=== PATIENT | female | born 1955 | race African-American/Black ===

== ENCOUNTER 2024-06-18 13:26 | Inpatient (IN) | payer MEDICARE ==
[2024-06-18] MEDS ORDERED: Ondansetron PF 4 MG/2 ML Vial ONE (14:35)
[2024-06-18 15:18] LABS: Bilirubin Negative (Negative); Blood, Urine Trace (Negative); CAUTI Indications for Culture Dysuria,urgency,freq; Clarity Clear (Clear); Glucose, Urine (Dipstick) Greater than 1000 mg/dL (Negative); Ketone, Urine 80 mg/dL (Negative); Leukocyte 250 Leu/uL (Negative); Nitrite Negative (Negative); Protein, Urine (Dipstick) 30 mg/dL (Neg-Trace); RBC/HPF 0-3 HPF (0-3); Specific Gravity, Urine 1.014 (1.002-1.036); Squamous Epithelial 0-3 HPF (0-3); Urobilinogen Normal mg/dL (Less than 2); WBC/HPF Greater than 50 HPF (0-3); pH, Urine 5.5 (5.0-9.0)
[2024-06-18 15:19] LABS: Influenza A by NAA Not Detected (NotDetected); Influenza B by NAA Not Detected (NotDetected); SARS-CoV-2 NAA Rapid Test Not Detected (NotDetected)
[2024-06-18 15:20] LABS: Bacteria/HPF 1+ HPF (None Seen)
[2024-06-18 15:21] LABS: Urine Culture Reflex Yes Yes
[2024-06-18 16:18] LABS: Analyzer IN Cardio ER; Base Excess -19.4 mEq/L (-2.0 to +3.0); Chloride (VBG) 101 mmol/L (98-106); Hematocrit-VBG 37 % (36.0-47.0); Hemoglobin (Hb) 12.6 g/dL (11.7-16.1); Potassium (VBG) 4.92 mmol/L (3.70-5.30); Sodium 136 mmol/L (133-146)
[2024-06-18 16:18] LABS: #Basophils Less than 0.03 10x3/uL (0.0-0.2); #Eosinphils Less than 0.03 10x3/uL (0.0-0.7); %Basophils 0.3 % (0.0-1.0); %Eosinophils 0.1 % (0.0-10.0); %Lymphocytes 9.9 % (21.0-51.0); %Monocytes 2.3 % (0.0-10.0); %Neutrophils 86.5 % (42.0-75.0); Hematocrit 35.4 % (36.0-47.0); Hemoglobin 10.8 g/dL (12.0-16.0); Mean Corpuscular HGB CONC 30.5 g/dL (32.0-36.0); Mean Corpuscular Hemoglobin 27.7 pg (27.0-31.0); Mean Corpuscular Volume 90.8 fL (78.0-98.0); Mean Platelet Volume 11.9 fL (7.4-10.4); Platelet Count 215 10x3/uL (130-400); RBC Distribution Width 14.4 % (11.5-14.5)
[2024-06-18 16:22] LABS: Actual Bicarbonate (HCO3v) 8.7 mEq/L (22-28)
[2024-06-18 16:32] LABS: ALT (SGPT) 17 U/L (8-55); AST (SGOT) 14 U/L (5-34); Albumin 3.6 g/dL (3.4-4.8); Alkaline Phosphatase 76 U/L (40-110); Anion Gap 28 mmol/L (10-20); BUN (Urea Nitrogen) 50 mg/dL (9.8-20.1); Bilirubin, Total 0.4 mg/dL (0.2-1.2); Calc. Creatinine Clearance 0 mL/min (70-130); Carbon Dioxide Less than 8 mmol/L (23-31); Chloride 103 mmol/L (98-107); Estimated GFR 11; Globulin 3.6 g/dL (2.4-3.5); Glucose 569 mg/dL (80-115); Potassium 5.1 mmol/L (3.5-5.1); Protein, Total 7.2 g/dL (5.8-8.1); Sodium 133 mmol/L (136-145)
[2024-06-18] MEDS ORDERED: Dextrose 5 %-0.45 % NaCl 1,000 ML IV PRN (16:47)
[2024-06-18] MEDS ORDERED: Acetaminophen 325 MG TAB PO PRN (16:47)
[2024-06-18] MEDS ORDERED: Acetaminophen 650 MG Suppository PR PRN (16:47)
[2024-06-18] MEDS ORDERED: Electrolyte Replacement Protocol 1 EACH IVPB ONE (16:47)
[2024-06-18] MEDS ORDERED: NS 0.9% w/ 20 MEQ KCL 1,000 ML IV PRN ×2 (16:47)
[2024-06-18] MEDS ORDERED: Acetaminophen/Codeine 30-300mg Tablet PO PRN (16:47)
[2024-06-18] MEDS ORDERED: Ondansetron ODT 4 MG TAB PO PRN (16:47)
[2024-06-18] MEDS ORDERED: Sodium Chloride 0.9% 1,000 ML IV PRN ×4 (16:47)
[2024-06-18] MEDS ORDERED: cefTRIAXone (ROCEPHIN) 2 GM VIAL ONE (16:57)
[2024-06-18] MEDS ORDERED: Sodium Chloride 0.9% 100 ML ONE (16:58)
[2024-06-18] MEDS ORDERED: INSULIN REGULAR IN 0.9 % NACL 100 ML ONE (17:15)
[2024-06-18] MEDS ORDERED: Insulin Regular, Human 100 UNIT/ML 10 ML VIAL ONE (17:15)
[2024-06-18] MEDS ORDERED: hydrALAZINE 20 MG/ML VIAL ONE (18:11)
[2024-06-18 19:10] LABS: Anion Gap 29 mmol/L (10-20); BUN (Urea Nitrogen) 50 mg/dL (9.8-20.1); Calc. Creatinine Clearance 0 mL/min (70-130); Calcium 8.9 mg/dL (7.8-10.44); Carbon Dioxide Less than 8 mmol/L (23-31); Chloride 105 mmol/L (98-107); Estimated GFR 11; Glucose 506 mg/dL (80-115); Magnesium 2.1 mg/dL (1.6-2.6); Phosphorus 5.1 mg/dL (2.3-4.7); Potassium 5.8 mmol/L (3.5-5.1); Sodium 135 mmol/L (136-145)
[2024-06-18] MEDS ORDERED: Famotidine/PF 20 mg/2ml Vial ONE (21:49)
[2024-06-18] MEDS: Famotidine/PF 20 mg/2ml Vial SLOW IVP SCH (21:51)
[2024-06-18 23:07] LABS: Anion Gap 25 mmol/L (10-20); BUN (Urea Nitrogen) 49 mg/dL (9.8-20.1); Calc. Creatinine Clearance 11 mL/min (70-130); Carbon Dioxide 8 mmol/L (23-31); Chloride 111 mmol/L (98-107); Estimated GFR 12; Glucose 303 mg/dL (80-115); Sodium 140 mmol/L (136-145)
[2024-06-18] MEDS: D5 1/2 NS w/20 mEq KCL 1,000 ML IV PRN (23:53)
[2024-06-19 00:02] VITALS: BMI 19.9
[2024-06-19] MEDS: hydrALAZINE 20 MG/ML VIAL SLOW IVP PRN (00:17)
[2024-06-19] MEDS: Labetalol HCl 100 MG/20 ML VIAL SLOW IVP SCH (00:21)
[2024-06-19 01:42] LABS: Anion Gap 20 mmol/L (10-20); BUN (Urea Nitrogen) 45 mg/dL (9.8-20.1); Calc. Creatinine Clearance 14 mL/min (70-130); Calcium 8.6 mg/dL (7.8-10.44); Carbon Dioxide 10 mmol/L (23-31); Chloride 113 mmol/L (98-107); Estimated GFR 14; Glucose 263 mg/dL (80-115); Potassium 4.2 mmol/L (3.5-5.1); Sodium 139 mmol/L (136-145)
[2024-06-19 04:14] LABS: ALT (SGPT) 14 U/L (8-55); AST (SGOT) 18 U/L (5-34); Albumin 3.5 g/dL (3.4-4.8); Alkaline Phosphatase 71 U/L (40-110); Anion Gap 19 mmol/L (10-20); BUN (Urea Nitrogen) 43 mg/dL (9.8-20.1); Bilirubin, Total 0.2 mg/dL (0.2-1.2); Calc. Creatinine Clearance 14 mL/min (70-130); Calcium 8.9 mg/dL (7.8-10.44); Carbon Dioxide 10 mmol/L (23-31); Chloride 113 mmol/L (98-107); Estimated GFR 14; Globulin 3.8 g/dL (2.4-3.5); Glucose 281 mg/dL (80-115); Potassium 4.4 mmol/L (3.5-5.1); Protein, Total 7.3 g/dL (5.8-8.1); Sodium 138 mmol/L (136-145)
[2024-06-19 06:00] LABS: #Basophils Less than 0.03 10x3/uL (0.0-0.2); #Eosinphils Less than 0.03 10x3/uL (0.0-0.7); %Basophils 0.2 % (0.0-1.0); %Eosinophils 0.1 % (0.0-10.0); %Lymphocytes 12.6 % (21.0-51.0); %Monocytes 6.1 % (0.0-10.0); %Neutrophils 80.6 % (42.0-75.0); Hematocrit 33.4 % (36.0-47.0); Hemoglobin 10.7 g/dL (12.0-16.0); Mean Corpuscular Hemoglobin 27.5 pg (27.0-31.0); Mean Corpuscular Volume 85.9 fL (78.0-98.0); Mean Platelet Volume 11.7 fL (7.4-10.4); Platelet Count 225 10x3/uL (130-400); RBC Distribution Width 14.4 % (11.5-14.5); Red Blood Cell (RBC) Count 3.89 mill/uL (4.20-5.40)
[2024-06-19] MEDS: INSULIN REGULAR IN 0.9 % NACL 100 ML IVPB SCH (06:00)
[2024-06-19 06:12] LABS: Hemoglobin A1c 12.7 % (4.0-6.0)
[2024-06-19 10:00] LABS: Anion Gap 9 mmol/L (10-20); BUN (Urea Nitrogen) 38 mg/dL (9.8-20.1); Calc. Creatinine Clearance 15 mL/min (70-130); Calcium 8.7 mg/dL (7.8-10.44); Carbon Dioxide 16 mmol/L (23-31); Chloride 116 mmol/L (98-107); Estimated GFR 16; Glucose 181 mg/dL (80-115); Potassium 3.7 mmol/L (3.5-5.1); Sodium 137 mmol/L (136-145)
[2024-06-19] MEDS: NIFEdipine XL 30 MG ER.TAB PO SCH ×2 (11:16→20:47)
[2024-06-19] MEDS: Dextrose 50% Abboject 50 ML SYRINGE SLOW IVP PRN (11:34)
[2024-06-19 14:30] LABS: Anion Gap 12 mmol/L (10-20); BUN (Urea Nitrogen) 33 mg/dL (9.8-20.1); Calc. Creatinine Clearance 16 mL/min (70-130); Calcium 9.1 mg/dL (7.8-10.44); Carbon Dioxide 16 mmol/L (23-31); Chloride 113 mmol/L (98-107); Estimated GFR 16; Glucose 153 mg/dL (80-115); Potassium 3.9 mmol/L (3.5-5.1); Sodium 137 mmol/L (136-145)
[2024-06-19] MEDS ORDERED: Insulin Regular, Human 100 UNIT/ML 10 ML VIAL SC PRN (14:49)
[2024-06-19] MEDS ORDERED: Glucagon 1 MG/ML KIT IM PRN (14:49)
[2024-06-19] MEDS ORDERED: Dextrose 5% in Water 1,000 ML IV PRN (14:49)
[2024-06-19] MEDS ORDERED: Insulin Lispro 100 UNIT/ML 10 ML VIAL SC PRN (15:04)
[2024-06-19] MEDS: Insulin Glargine 30 UNITS/0.3 ML VIAL SC SCH (15:18)
[2024-06-19] MEDS: Ondansetron PF 4 MG/2 ML Vial IVP PRN (16:17)
[2024-06-19] MEDS: Insulin Lispro 100 UNIT/ML 10 ML VIAL SC PRN (17:26)
[2024-06-19] MEDS: Insulin Lispro 100 UNIT/ML 10 ML VIAL SC SCH (17:26)
[2024-06-19] MEDS: cefTRIAXone\\ROCEPHIN 1 GM in Sodium Chloride 0.9% 100 ML IVPB SCH (17:32)
[2024-06-19 20:03] LABS: Anion Gap 11 mmol/L (10-20); BUN (Urea Nitrogen) 29 mg/dL (9.8-20.1); Calc. Creatinine Clearance 16 mL/min (70-130); Calcium 9.2 mg/dL (7.8-10.44); Carbon Dioxide 15 mmol/L (23-31); Chloride 114 mmol/L (98-107); Estimated GFR 17; Glucose 195 mg/dL (80-115); Potassium 3.6 mmol/L (3.5-5.1); Sodium 136 mmol/L (136-145)
[2024-06-19] MEDS: Labetalol HCl 100 MG/20 ML VIAL SLOW IVP PRN (23:37)
[2024-06-20] MEDS: Promethazine HCl 12.5 MG in Sodium Chloride 0.9% 50 ML IVPB PRN (00:05)
[2024-06-20 04:24] LABS: Anion Gap 16 mmol/L (10-20); BUN (Urea Nitrogen) 25 mg/dL (9.8-20.1); Calc. Creatinine Clearance 16 mL/min (70-130); Calcium 9.3 mg/dL (7.8-10.44); Carbon Dioxide 8 mmol/L (23-31); Cardiac Risk 3.6 (Less than 4.5); Chloride 113 mmol/L (98-107); Cholesterol 131 mg/dl (< 200 Desired); Estimated GFR 17; Glucose 383 mg/dL (80-115); HDL Cholesterol 36 mg/dL (>60 Neg Risk); LDL Cholesterol, Calculated 81 mg/dL; Magnesium 1.8 mg/dL (1.6-2.6); Potassium 4.4 mmol/L (3.5-5.1); Sodium 133 mmol/L (136-145); Triglycerides 68 mg/dL (Less than 150)
[2024-06-20] MEDS: Dextrose 5 % And 0.9 % NaCl 1,000 ML IV SCH (05:04)
[2024-06-20] MEDS: INSULIN REGULAR IN 0.9 % NACL 100 ML IVPB SCH (05:27)
[2024-06-20 06:26] LABS: #Basophils Less than 0.03 10x3/uL (0.0-0.2); #Eosinphils Less than 0.03 10x3/uL (0.0-0.7); %Basophils 0.1 % (0.0-1.0); %Lymphocytes 6.3 % (21.0-51.0); %Monocytes 1.5 % (0.0-10.0); %Neutrophils 91.8 % (42.0-75.0); Hematocrit 36.6 % (36.0-47.0); Hemoglobin 11.8 g/dL (12.0-16.0); Mean Corpuscular HGB CONC 32.2 g/dL (32.0-36.0); Mean Corpuscular Hemoglobin 27.8 pg (27.0-31.0); Mean Corpuscular Volume 86.3 fL (78.0-98.0); Mean Platelet Volume 11.9 fL (7.4-10.4); Platelet Count 185 10x3/uL (130-400); RBC Distribution Width 14.8 % (11.5-14.5); Red Blood Cell (RBC) Count 4.24 mill/uL (4.20-5.40)
[2024-06-20] MEDS ORDERED: NIFEdipine XL 30 MG ER.TAB PO SCH (09:00)
[2024-06-20] MEDS: Insulin Glargine 30 UNITS/0.3 ML VIAL SC SCH (10:00)
[2024-06-20 10:35] LABS: Chloride 115 mmol/L (98-107); Potassium 3.4 mmol/L (3.5-5.1); Sodium 140 mmol/L (136-145)
[2024-06-20 10:36] LABS: Calcium 9.4 mg/dL (7.8-10.44)
[2024-06-20 10:37] LABS: Glucose 218 mg/dL (80-115)
[2024-06-20 10:38] LABS: Anion Gap 16 mmol/L (10-20); Carbon Dioxide 12 mmol/L (23-31)
[2024-06-20 10:40] LABS: Calc. Creatinine Clearance 16 mL/min (70-130); Estimated GFR 17
[2024-06-20 10:41] LABS: BUN (Urea Nitrogen) 24 mg/dL (9.8-20.1)
[2024-06-20] MEDS: Metoprolol Tartrate 25 MG TAB PO SCH ×2 (13:27→20:22)
[2024-06-20 13:34] LABS: Anion Gap 10 mmol/L (10-20); BUN (Urea Nitrogen) 23 mg/dL (9.8-20.1); Calc. Creatinine Clearance 17 mL/min (70-130); Calcium 9.3 mg/dL (7.8-10.44); Carbon Dioxide 17 mmol/L (23-31); Chloride 116 mmol/L (98-107); Estimated GFR 18; Glucose 191 mg/dL (80-115); Potassium 3.3 mmol/L (3.5-5.1); Sodium 140 mmol/L (136-145)
[2024-06-20 18:54] LABS: Anion Gap 10 mmol/L (10-20); BUN (Urea Nitrogen) 19 mg/dL (9.8-20.1); Calc. Creatinine Clearance 18 mL/min (70-130); Carbon Dioxide 16 mmol/L (23-31); Chloride 115 mmol/L (98-107); Estimated GFR 20; Glucose 264 mg/dL (80-115); Potassium 3.2 mmol/L (3.5-5.1); Sodium 138 mmol/L (136-145)
[2024-06-20] MEDS ORDERED: D5 1/2 NS w/20 mEq KCL 1,000 ML IV PRN (19:39)
[2024-06-20] MEDS: D5 LR w/20 mEq KCL 1,000 ML IV SCH (20:08)
[2024-06-20] MEDS: Famotidine/PF 20 mg/2ml Vial SLOW IVP SCH (20:22)
[2024-06-20 23:54] LABS: Anion Gap 12 mmol/L (10-20); BUN (Urea Nitrogen) 16 mg/dL (9.8-20.1); Calc. Creatinine Clearance 20 mL/min (70-130); Carbon Dioxide 15 mmol/L (23-31); Chloride 115 mmol/L (98-107); Estimated GFR 22; Glucose 174 mg/dL (80-115); Potassium 3.3 mmol/L (3.5-5.1); Sodium 139 mmol/L (136-145)
[2024-06-21] MEDS: Sodium Bicarb 50 MEQ/50 ML Abboject 8.4% SYRINGE IVP SCH (02:02)
[2024-06-21 04:03] LABS: #Basophils Less than 0.03 10x3/uL (0.0-0.2); %Basophils 0.3 % (0.0-1.0); %Eosinophils 1.6 % (0.0-10.0); %Lymphocytes 20.7 % (21.0-51.0); %Monocytes 7.5 % (0.0-10.0); %Neutrophils 69.6 % (42.0-75.0); Hemoglobin 11.1 g/dL (12.0-16.0); Mean Corpuscular HGB CONC 32.6 g/dL (32.0-36.0); Mean Corpuscular Hemoglobin 27.3 pg (27.0-31.0); Mean Corpuscular Volume 83.7 fL (78.0-98.0); Mean Platelet Volume 11.7 fL (7.4-10.4); Platelet Count 188 10x3/uL (130-400); RBC Distribution Width 14.8 % (11.5-14.5); Red Blood Cell (RBC) Count 4.06 mill/uL (4.20-5.40)
[2024-06-21 04:16] LABS: Anion Gap 11 mmol/L (10-20); BUN (Urea Nitrogen) 14 mg/dL (9.8-20.1); Calc. Creatinine Clearance 20 mL/min (70-130); Calcium 9.1 mg/dL (7.8-10.44); Carbon Dioxide 23 mmol/L (23-31); Chloride 112 mmol/L (98-107); Estimated GFR 23; Glucose 112 mg/dL (80-115); Potassium 3.2 mmol/L (3.5-5.1); Sodium 143 mmol/L (136-145)
[2024-06-21] MEDS: Insulin Glargine 30 UNITS/0.3 ML VIAL SC SCH (13:14)
[2024-06-21] MEDS: Potassium Bicarbonate/Cit Ac 20 MEQ TAB PO SCH (13:15)
[2024-06-21] MEDS ORDERED: Potassium Bicarbonate/Cit Ac 20 MEQ TAB PO SCH (17:00)
[2024-06-21] MEDS ORDERED: Insulin Glargine 30 UNITS/0.3 ML VIAL SC SCH (17:00)
[2024-06-21] MEDS: Guaifenesin DM 100-10/5 ML UDCUP PO PRN (20:00)
[2024-06-21] MEDS: LevoFLOXacin 500 mg/D5W 500 MG in Premix 1 BAG IVPB SCH (20:00)
[2024-06-22 05:55] LABS: Anion Gap 10 mmol/L (10-20); BUN (Urea Nitrogen) 9 mg/dL (9.8-20.1); Calc. Creatinine Clearance 25 mL/min (70-130); Calcium 8.9 mg/dL (7.8-10.44); Carbon Dioxide 26 mmol/L (23-31); Chloride 107 mmol/L (98-107); Estimated GFR 25; Glucose 90 mg/dL (80-115); Potassium 3.7 mmol/L (3.5-5.1); Sodium 139 mmol/L (136-145)
[2024-06-22] MEDS: Insulin Lispro 100 UNIT/ML 10 ML VIAL SC PRN (12:25)
[2024-06-22] MEDS: FLU (Fluad Triv) TS24-25 (65UP)/MF59C/PF 45 MCG/0.5 ML Syringe IM ONE (12:38)
[2024-06-22] MEDS ORDERED: LevoFLOXacin 250 mg/D5W 250 MG in Premix 1 BAG IVPB SCH (21:00)
[2024-06-22] MEDS: LevoFLOXacin 250 MG TAB PO SCH (21:07)
[2024-06-23 06:36] LABS: Anion Gap 11 mmol/L (10-20); BUN (Urea Nitrogen) 21 mg/dL (9.8-20.1); Calc. Creatinine Clearance 24 mL/min (70-130); Calcium 8.5 mg/dL (7.8-10.44); Carbon Dioxide 23 mmol/L (23-31); Chloride 107 mmol/L (98-107); Estimated GFR 21; Glucose 58 mg/dL (80-115); Potassium 3.5 mmol/L (3.5-5.1); Sodium 137 mmol/L (136-145)
[2024-06-23 08:54] VITALS: TEMP 97.2
[2024-06-23 10:32] LABS: pH (venous) 7.109 (7.32-7.43)
[2024-06-23 13:11] VITALS: BP 137/76
== END 2024-06-23 16:54 | disposition home or self-care (01) | DRG 689 ==
LOC: ERS 13:26 → ERHOLD 16:49 → CCU 22:57 → SURG A 06-22 13:10
PROVIDERS: ADMIT Internal Medicine; ATTEND Internal Medicine
DX: N39.0 Urinary tract infection, site not specified (principal); E11.10 Type 2 diabetes mellitus with ketoacidosis without coma; N17.9 Acute kidney failure, unspecified; E78.5 Hyperlipidemia, unspecified; D63.8 Anemia in other chronic diseases classified elsewhere; E87.6 Hypokalemia; N18.9 Chronic kidney disease, unspecified; E86.0 Dehydration; E11.22 Type 2 diabetes mellitus with diabetic chronic kidney disease; I12.9 Hypertensive chronic kidney disease with stage 1 through stage 4 chronic kidney disease, or unspecified chronic kidney disease; B95.7 Other staphylococcus as the cause of diseases classified elsewhere; Z88.8 Allergy status to other drugs, medicaments and biological substances
CPT/HCPCS: 36415; 36416; 71045; 76770; 80048; 80053; 80061; 81001; 82010; 82805; 83036; 83605; 83735; 83930; 84100; 84443; 84484; 85025; 87040; 87077; 87086; 87186; 93005; 96361; 96365; 96366; 96368; 96375; 96376; J0360; J0696; J1815; J1956; J2405; J2550; J3480; J3490; J7042; J7999